=== PATIENT | male | born 1960 | race Caucasian/White ===

== ENCOUNTER → 2017-10-30 | Day surgery (SDC) | payer BC ==
[~2017-10-30] MED LIST: Glycopyrrolate 0.2 MG/ML SDV IVPUSH ONE; Lactated Ringers 1,000 ML IV SCH; Propofol 200 MG/20 ML SDV IV ONE
--- NOTE | 2017-10-30 12:43 | OR ---
DATE OF OPERATION: 10/30/2017 PREOPERATIVE DIAGNOSIS: 1. GASTROESOPHAGEAL REFLUX DISEASE. 2. ALTERED BOWEL HABITS. POSTOPERATIVE DIAGNOSIS: 1. GASTROESOPHAGEAL REFLUX DISEASE. 2. ALTERED BOWEL HABITS. SURGEON: Shaggy Mary MD DESCRIPTION OF PROCEDURE: 1. EGD with biopsies x3, MARIA T. 2. Full-length colonoscopy with polyp removal x3. ANESTHESIA: EXERCISE SPECIALIST due to chronic alcohol abuse and cardiomyopathy. COMPLICATIONS: None. SPECIMEN: 1. Antral biopsy x2. 2. Fundal biopsy x1. 3. MARIA T. 4. Colon polyps x3. See op note. All hyperplastic and less than 0.5 cm. FINDINGS: 1. Full-length EGD. 2. Diffuse gastritis without ulceration or erosion. 3. Full-length colonoscopy. 4. Extremely poor bowel prep. 5. Three hyperplastic polyps. RECOMMENDATIONS: Medical followup with Dr. Mistry. Followup colonoscopy in 5 years. INDICATIONS: The patient apparently has been having some ongoing dyspepsia and altered bowel habits. Dr. Mistry sent him for upper and lower endoscopy. DESCRIPTION OF PROCEDURE: The patient was prepped and draped, placed in the left lateral decubitus position. A lubricated Olympus gastroscope was inserted over a bit advanced to cricopharyngeus area and easily intubated in the esophagus. Esophageal lining was benign in its entire course. The Z-line was crisp and sharp at 40 cm. No hernia. No distal esophagitis, stricturing, ulceration, or De La Garza's changes. The scope was advanced into the stomach through the pylorus into the second portion of the duodenum. This and the duodenal bulb were benign. The scope was brought back into the stomach and retroflexed. The upper fundus and cardia appeared unremarkable. In the mid portion of the fundus down through the antrum, the patient had some very mild, but chronic indolent gastritis with some inflammation present. Three biopsies were taken to the antrum, one of the fundus all along with a MARIA T test. No other polyps, masses, or lesions were seen. Air was suctioned. The scope was removed from the stomach without complication. A lubricated Olympus colonoscope was then inserted and easily advanced to the cecum. Direct visualization of the ileocecal valve, it was difficult because of the volume of stool in the cecum and proximal ascending colon. A lot of this was particular, we had the scope get plug in the multiple times, we just could not suctioned this area out due to the volume of stool, so I could not see into the cecal pouch at all and I could not get a good visualization of the early proximal ascending colon. Not pulling on, the rest of the ascending colon appeared benign and the proximal transverse colon. The patient did have a small hyperplastic polyp along the haustral fold removed in its entirety with the cold forceps. The rest of the transverse and descending areas appeared unremarkable. In the left colon and sigmoid, rectosigmoid area could find no signs of any vascular abnormalities, colitis, or bleeding sites. There was no signs of any significant diverticula. Bowel prep was poor throughout the length of the colon, but I did find two more small hyperplastic-appearing polyps, one in the distal sigmoid around 40 cm, removed with a forceps. The last polyp was a little bit larger probably around 0.5 cm just appeared to be hyperplastic, but it was stalked, we removed it with a snare and suctioned into polyp trap #1, this was around 20 to 25 cm. Rectal vault was difficult to visualize due to stool, but retroflexion did not show any gross perianal lesions. Air was suctioned as best as possible. Scope removed. The patient was stable in the recovery room. MELLO /[id number]
== END ==
LOC: CC.SDS 07:22
PROVIDERS: ATTEND Family Medicine
DX: D12.3 Benign neoplasm of transverse colon (principal); D12.7 Benign neoplasm of rectosigmoid junction; K29.50 Unspecified chronic gastritis without bleeding; K21.9 Gastro-esophageal reflux disease without esophagitis; I10 Essential (primary) hypertension; E11.42 Type 2 diabetes mellitus with diabetic polyneuropathy; F17.210 Nicotine dependence, cigarettes, uncomplicated; H91.90 Unspecified hearing loss, unspecified ear; I42.9 Cardiomyopathy, unspecified; F10.10 Alcohol abuse, uncomplicated; I82.409 Acute embolism and thrombosis of unspecified deep veins of unspecified lower extremity; Z79.899 Other long term (current) drug therapy; Z79.4 Long term (current) use of insulin; Z79.82 Long term (current) use of aspirin; Z79.01 Long term (current) use of anticoagulants; N40.1 Benign prostatic hyperplasia with lower urinary tract symptoms; R35.1 Nocturia; M19.90 Unspecified osteoarthritis, unspecified site; M10.9 Gout, unspecified; E55.9 Vitamin D deficiency, unspecified
CPT/HCPCS: 36415; 82962; 85610; 87081; J2704; J7120